=== PATIENT | female | born 1995 | race Caucasian/White ===

== ENCOUNTER 2017-11-17 20:15 | Emergency (ER) | payer OTHER, MEDICAID ==
[~2017-11-17] VITALS: Ht 165.1 cm; Wt 61.2 kg
[2017-11-17] MEDS ORDERED: LEXAPRO20 MG PO (20:26)
[2017-11-17] MEDS ORDERED: TRAZODONE HCL100 MG PO (20:26)
[2017-11-17] MEDS ORDERED: WELLBUTRIN 100100 MG PO (20:26)
[2017-11-17 20:37] LABS: URINE BILIRUBIN NEGATIVE (Negative); URINE BLOOD 3+ (Negative); URINE CLARITY CLEAR; URINE COLOR YELLOW; URINE GLUCOSE-RANDOM NEGATIVE (Negative); URINE KETONES NEGATIVE (Negative); URINE LEUKOCYTES-REFLEX NEGATIVE (Negative); URINE NITRITE-REFLEX NEGATIVE (Negative); URINE PROTEIN NEGATIVE (Negative); URINE SPECIFIC GRAVITY 1.025 (1.005-1.030); URINE UROBILINOGEN 0.2 E.U./dl (0.2-1.0)
[2017-11-17 20:57] LABS: CASTS None Seen /LPF (None Seen); SQUAMOUS >10 Many /LPF (0-3)
[2017-11-17 20:58] LABS: BACTERIA-REFLEX 1-9 Few /HPF (None Seen); MUCUS 0-3 Light strn/LPF (None Seen); URINE WBC-REFLEX 0-5 Rare /HPF (0-5)
[2017-11-17 20:59] LABS: CRYSTALS None Seen /LPF (None Seen)
[2017-11-17 21:03] LABS: AMP/METHAMP Negative (Negative); BARBITURATES Negative (Negative); BENZODIAZEPINES Negative (Negative); COCAINE Negative (Negative); METHADONE Negative (Negative); OPIATES Negative (Negative); PCP Negative (Negative); THC Negative (Negative)
[2017-11-17 21:16] LABS: ABSOLUTE LYMPHOCYTES 2.2 thou/uL (0.8-5.3); ABSOLUTE MONOCYTES 0.4 thou/uL (0.0-1.2); ABSOLUTE NEUTROPHILS 2.1 thou/uL (1.6-8.1); BASOPHILS 0.5 %; EOSINOPHILS 0.4 %; HEMATOCRIT 38.7 % (37.0-47.0); HEMOGLOBIN 13.1 gm/dL (12.0-15.0); LYMPHOCYTES 46.9 %; MCH 31.8 pg (26.0-34.0); MCHC 33.9 g/dL (28.0-37.0); MCV 93.8 fL (80.0-100.0); MONOCYTES 8.1 %; MPV 7.7 fl. (7.2-11.1); NUCLEATED RBCS 0 /100WBC; PLATELET COUNT* 170 thou/uL (150-400); POLYS 44.1 %; RBC 4.12 mil/uL (4.20-5.00); RDW-CV 12.9 % (10.5-14.5); WBC 4.7 thou/uL (4.0-11.0)
[2017-11-17 21:23] LABS: CALCIUM 8.6 mg/dL (8.5-10.1); CREATININE 0.8 mg/dL (0.6-1.3); POTASSIUM 4.1 mmol/L (3.5-5.1)
[2017-11-17 21:28] LABS: ALBUMIN 3.8 g/dL (3.4-5.0); TOTAL PROTEIN 6.9 g/dL (6.4-8.2)
[2017-11-17] MEDS ORDERED: HYDROCODONE-AP1 EAC6 PO (21:54)
[2017-11-17] MEDS ORDERED: FLOMAX0.4 MG PO (21:54)
[2017-11-17 22:05] VITALS: BP 102/56
== END 2017-11-17 22:05 | disposition home or self-care (01) ==
LOC: M.ERS 20:15
PROVIDERS: Emergency Medicine
DX: N20.0 Calculus of kidney (principal); J45.909 Unspecified asthma, uncomplicated; F32.9 Major depressive disorder, single episode, unspecified; F41.9 Anxiety disorder, unspecified; F17.210 Nicotine dependence, cigarettes, uncomplicated

== ENCOUNTER 2017-12-07 16:35 | Emergency (ER) | payer OTHER, MEDICAID ==
[~2017-12-07] VITALS: Ht 165.1 cm; Wt 63.5 kg
[~2017-12-07 16:35] MED LIST: FLOMAX0.4 MG PO; HYDROCODONE-AP1 EAC6 PO; LEXAPRO20 MG PO; TRAZODONE HCL100 MG PO; WELLBUTRIN 100100 MG PO
[2017-12-07 17:36] LABS: ABSOLUTE LYMPHOCYTES 1.6 thou/uL (0.8-5.3); ABSOLUTE MONOCYTES 0.5 thou/uL (0.0-1.2); ABSOLUTE NEUTROPHILS 4.1 thou/uL (1.6-8.1); BASOPHILS 0.4 %; EOSINOPHILS 0.6 %; HEMATOCRIT 39.9 % (37.0-47.0); HEMOGLOBIN 13.8 gm/dL (12.0-15.0); LYMPHOCYTES 25.3 %; MCH 32.6 pg (26.0-34.0); MCHC 34.6 g/dL (28.0-37.0); MONOCYTES 7.2 %; MPV 7.5 fl. (7.2-11.1); NUCLEATED RBCS 0 /100WBC; PLATELET COUNT* 171 thou/uL (150-400); POLYS 66.5 %; RBC 4.25 mil/uL (4.20-5.00); RDW-CV 12.8 % (10.5-14.5); WBC 6.2 thou/uL (4.0-11.0)
[2017-12-07 17:42] LABS: CALCIUM 8.6 mg/dL (8.5-10.1); CREATININE 0.8 mg/dL (0.6-1.3); POTASSIUM 3.9 mmol/L (3.5-5.1)
[2017-12-07 17:46] LABS: ALBUMIN 3.8 g/dL (3.4-5.0); TOTAL BILIRUBIN 1.9 mg/dL (<0.1-1.0); TOTAL PROTEIN 6.9 g/dL (6.4-8.2)
[2017-12-07] MEDS ORDERED: ZPAK PO (17:59)
[2017-12-07] MEDS ORDERED: PROAIR HFA8.5 GM INH (17:59)
[2017-12-07] MEDS ORDERED: MEDROLDOSEPACK PO (18:05)
[2017-12-07 18:19] VITALS: BP 95/55
--- NOTE | 2017-12-08 15:14 | EKG ---
[place] [address] ELECTROCARDIOGRAM REPORT Name: VALERY GIRARD [id number] Admission: 12/07/17 Attend Phys: Discharge: 12/07/17 Date of : [birth year] Report #: [id number] THIS REPORT FOR: //name// [facility] ED Test Date: 2017-12-07 Test Time: 16:52:12 Pat Name: VALERY GIRARD Department: Room: Gender: F Child Care Specialist: William INFANTE : 1995 Requested By: Mayra Gaona Order Number: [id number] Zakia MD: Kashif Montano Measurements Intervals [place] Rate: 100 P: 67 KS: 135 QRS: 32 QRSD: 75 T: 61 QT: 318 QTc: 411 Interpretive Statements Sinus tachycardia No previous ECG available for comparison Electronically Signed On 12-08-2017 15:14:36 CDT by Kashif Montano [email or web address] <ELECTRONICALLY SIGNED> By: Kashif Montano MD, [facility] 12/08/17 1514 1652 1652 Kashif Montano MD, FACC /EPI
== END 2017-12-07 18:19 | disposition home or self-care (01) ==
LOC: M.ERS 16:35
PROVIDERS: Physician Assistant
DX: J20.9 Acute bronchitis, unspecified (principal); J45.909 Unspecified asthma, uncomplicated; F41.9 Anxiety disorder, unspecified; F32.9 Major depressive disorder, single episode, unspecified; F17.210 Nicotine dependence, cigarettes, uncomplicated